=== PATIENT | male | born 1985 | race Caucasian/White ===

== ENCOUNTER 2023-09-05 16:18 | Emergency (ER) | payer OTHER ==
[~2023-09-05] VITALS: Ht 172.7 cm; Wt 99.8 kg
[2023-09-05] MEDS ORDERED: IBUPROFEN 600 MG TABLET ONE ×2 (19:02→19:06)
[2023-09-05] MEDS: IBUPROFEN 600 MG TABLET PO ONE (19:08)
[2023-09-05] MEDS ORDERED: IBUP-1953 PO (20:47)
[2023-09-05 22:24] VITALS: BP 144/80; TEMP 97.8; O2SAT 99
== END 2023-09-05 21:22 | disposition home or self-care (01) ==
LOC: ER 16:51
DX: S02.2XXA Fracture of nasal bones, initial encounter for closed fracture (principal); S00.83XA Contusion of other part of head, initial encounter; Y04.0XXA Assault by unarmed brawl or fight, initial encounter; Y93.89 Activity, other specified; Y92.89 Other specified places as the place of occurrence of the external cause; Y99.8 Other external cause status
CPT/HCPCS: 70486-TC